=== PATIENT | female | born 1970 | race Caucasian/White ===

== ENCOUNTER 2019-07-08 20:20 | Emergency (ER) | payer MEDICAID, SELFPAY ==
--- NOTE | 2019-07-08 20:22 | W.ED.EXTPRO ---
HPI - Extremity Problem General: Chief complaint: Extremity Injury, Lower Stated complaint: ANKLE INJURY Time Seen by Provider: 07/08/19 20:22 Source: patient Mode of arrival: ambulatory Limitations: no limitations History of Present Illness: HPI Narrative: Patient was stepping off the bed after hanging some drapes in a room. And twisted her left foot and ankle. Patient has significant swelling noted to the ankle area and ecchymosis to the first meta tarsal. Patient reports previous fracture to the ankle. Patient appears well. Patient appears in no acute distress. Patient has had 50 mg of fentanyl prior to arrival. Complaint: joint paint Review of Systems General: Reports: 10 or more systems reviewed and unremarkable except in HPI and below Musc: Reports: joint pain (injury) PFS ED PFSH: Social History Smoking and tobacco status: current every day smoker Physical Exam Const: COMMON NORMALS: no apparent distress and oriented x3 GENERAL APPEARANCE: cooperative HENMT: COMMON NORMALS: normocephalic, external ears normal, EAC's normal, TM's normal bilaterally and external nose normal HEAD & SCALP: normal to inspection and normocephalic FACE & SINUS: normal facial exam NOSE: external nose normal GENERAL EAR: hearing not grossly impaired EXTERNAL EAR: Yes external ears normal EXTERNAL AUDITORY CANAL: EAC's normal TYMPANIC MEMBRANE: TM's normal bilaterally MOUTH: oral and palatal mucosa normal THROAT: posterior oropharynx normal Eye: COMMON NORMALS: PERRL and EOMs intact bilaterally PUPIL: Yes PERRL Neck/C-Spine: COMMON NORMALS: full ROM and no lymphadenopathy Lymph: LYMPHATIC: no lymphedema noted Chest: COMMONS NORMALS: inspection of chest normal and palpation of chest normal Resp: COMMON NORMALS: normal respiratory effort and clear to auscultation bilaterally AUSCULTATION: clear to auscultation bilaterally Cardio: COMMON NORMALS: regular rate and regular rhythm RATE: regular rate RHYTHM: regular rhythm GI: COMMON NORMALS: normal to inspection, nondistended, normoactive bowel sounds and non-tender : COMMON NORMALS: Yes no CVA tenderness BLADDER/KIDNEY EXAM: Yes no CVA tenderness Back/Pelvis: COMMON NORMALS: no CVA tenderness and thoracic and lumbar spine normal to inspection Extremity: COMMON NORMALS: normal to inspection GENERAL: Yes edema (left ankle) LEFT LOWER EXTREMITY: Yes ankle joint Left ankle: Yes inspection (lateral ankle swelling) and Yes palpation (lateral ankle tenderness) and Yes foot & digits Left foot and digits: Yes inspection (ecchymosis area 1st metatarsal, pulse intact) and Yes palpation (tenderness) Neuro: COMMON NORMALS: oriented x3, moves all extremities and no focal motor deficits Psych: COMMON NORMALS: mental status grossly normal and cooperative Skin: COMMON NORMALS: no rashes or lesions noted GENERAL SKIN EXAM: no rashes or lesions noted Course Vital Signs: Vital signs: Vital Signs Temperature 98.1 F 07/08/19 20:24 Pulse Rate 62 07/08/19 21:42 Respiratory Rate 18 07/08/19 21:42 Blood Pressure 95/62 07/08/19 21:42 Pulse Oximetry 98 07/08/19 21:42 MDM - Extremity (Nontraumatic) MDM Narrative: Medical decision making narrative: Patient comes in today with injury to the left ankle and foot. On exam we note some ecchymosis to the first metatarsal area of the foot, swelling to the lateral malleus. No dislocation is noted. Prompt capillary refill is noted. Pulses are intact. Differential diagnosis includes fracture, sprain, contusion. X-rays are negative for any fracture or dislocation. Reviewed exam with patient with recommendations for Markus wrap and nonweightbearing with crutches. We wrote a prescription for a orthopedic boot for further treatment and support of the ankle and foot. Recommend follow-up with primary care in 1 week. Discharge Plan Discharge Patient Disposition: Home, Self-Care Clinical Impression: Ankle sprain and strain Condition: Stable Prescriptions: New ibuprofen 800 mg tablet 800 mg PO Q8H PRN (Reason: pain) Qty: 30 RF: 0 Discharge Orders: Discharge Order (Routine); Ordered 07/08/19 Ordered By: Benjie Beard Referrals: Albertina Dick FNP [Primary Care Provider] - Discharge Diet: Usual diet Discharge Activity: Increase activity as tolerated Patient Instructions: Ankle Sprain (ED) Activity Restrictions/Additional Instructions: Home and rest Avoid weight bearing activity until you can stand on foot comfortably Use crutches until you can walk comfortably Markus wrap until swelling is resolved Use acetaminophen and ibuprofen for pain Ice and heat for further comfort Follow-up with primary care in one week for no improvement Discharge Date/Time: 07/08/19 21:45 Coding Level of Care Code ED Apparel Manager for Chg Fwd Exam Comprehensive
[2019-07-08 20:24] VITALS: BP 105/71; PULSE 76; RESP 18; TEMP 36.7; O2SAT 96; BMI 28.3
--- NOTE | 2019-07-08 20:27 | XR_ITS ---
WS: [id number] Left foot, 3 views, 07/08/2019 Clinical Data: injury Comparison: None. Findings: No fractures or dislocations are seen. No bone destruction or erosion is noted. The joint spaces and soft tissues are normal. There is a small plantar spur. XR/XR foot LT min 3V* 04600 Impression: Negative left foot.
--- NOTE | 2019-07-08 20:27 | XR_ITS ---
WS: [id number] Left leg including the tibia and fibula, 07/08/2019 Clinical Data: injury Comparison: None. Findings: No fractures or dislocations are seen. The left tibia and fibula are intact. The soft tissues are nor mal. XR/XR tibia fibula LT 2V 11421 Impression: Negative for fracture.
--- NOTE | 2019-07-08 20:28 | XR_ITS ---
WS: [id number] Left ankle, 3 views, 07/08/2019 Clinical Data: injury Comparison: None. Findings: No fractures or dislocations are seen. The ankle mortise is normal. The talus and calcaneus are unrem arkable. No soft tissue swelling over the medial malleolus is seen. There is swelling over the lateral malleolus. XR/XR ankle LT min 3V* 44190 Impression: 1. Negative for fracture. 2. Soft tissue swelling over lateral malleolus.
[2019-07-08] MEDS: ketorolac 30 mg/mL INJ IVP (21:20)
[2019-07-08 21:42] VITALS: BP 95/62; PULSE 62; RESP 18; O2SAT 98
== END 2019-07-08 21:45 | disposition home or self-care (01) ==
LOC: ER 21:30
PROVIDERS: Emergency Provider Nurse Practitioner Family; Family Provider Nurse Practitioner; PCP Nurse Practitioner
DX: S93.402A Sprain of unspecified ligament of left ankle, initial encounter (principal); S96.912A Strain of unspecified muscle and tendon at ankle and foot level, left foot, initial encounter; X50.1XXA Overexertion from prolonged static or awkward postures, initial encounter; F17.200 Nicotine dependence, unspecified, uncomplicated
CPT/HCPCS: 12345; 73590; 73610; 73630; 96374; 96375; 99281; 99283; E0114; J1885

== ENCOUNTER → 2020-03-03 08:42 | Outpatient (BNVA) | payer MEDICAID, SELFPAY | PROVIDERS: Family Provider Nurse Practitioner; PCP Nurse Practitioner; Visit Provider Family Medicine Adult Medicine | DX: R03.0 Elevated blood-pressure reading, without diagnosis of hypertension (principal); R63.5 Abnormal weight gain; R07.9 Chest pain, unspecified; Z86.39 Personal history of other endocrine, nutritional and metabolic disease; F41.9 Anxiety disorder, unspecified; F43.9 Reaction to severe stress, unspecified; F32.9 Major depressive disorder, single episode, unspecified; F51.02 Adjustment insomnia | CPT/HCPCS: 80053; 82550; 82552; 83036; 84443; 84484; 85025 ==

== ENCOUNTER → 2020-07-12 14:44 | Outpatient (BNVA) | payer MEDICAID, SELFPAY | PROVIDERS: Family Provider Nurse Practitioner; PCP Nurse Practitioner; Visit Provider Nurse Practitioner Women's Health | DX: R10.32 Left lower quadrant pain (principal) | CPT/HCPCS: 76830 ==

== ENCOUNTER → 2020-07-19 15:19 | Outpatient (BNVA) | payer MEDICAID, SELFPAY | PROVIDERS: Family Provider Nurse Practitioner; PCP Nurse Practitioner; Visit Provider Nurse Practitioner Women's Health | DX: Z01.419 Encounter for gynecological examination (general) (routine) without abnormal findings (principal); N92.4 Excessive bleeding in the premenopausal period; R10.32 Left lower quadrant pain | CPT/HCPCS: 88175; 88305 ==

== ENCOUNTER → 2020-08-25 11:52 | Outpatient (BNVA) | payer MEDICAID, SELFPAY | PROVIDERS: PCP Nurse Practitioner; Visit Provider Obstetrics & Gynecology | DX: N91.2 Amenorrhea, unspecified (principal); R10.2 Pelvic and perineal pain; Z20.822 Contact with and (suspected) exposure to COVID-19 | CPT/HCPCS: 87635 ==

== ENCOUNTER 2020-08-30 14:45 | Inpatient (IN) | payer MEDICAID, SELFPAY ==
[2020-08-25 11:19] VITALS: BMI 28.3
[2020-08-25 11:50] LABS: Basophils % 0.7 %; Eosinophils # 0.1 10^3/uL (0.0-0.8); Eosinophils % 1.2 %; Hematocrit 40.7 % (37.0-47.0); Hemoglobin 13.1 g/dL (11.5-15.3); Lymphocytes # 1.4 10^3/uL (0.8-4.8); Lymphocytes % 24.8 %; Mean Corpuscular HGB Conc 32.2 g/dL (30.0-36.0); Mean Corpuscular Hemoglobin 28.7 pg (28.0-34.0); Mean Corpuscular Volume 89.1 fL (81-99); Mean Platelet Volume 12.6 fL (7.4-10.4); Monocytes # 0.4 10^3/uL (0.2-0.9); Monocytes % 7.1 %; Neutrophils # 3.83 10^3/uL (1.8-7.7); Neutrophils % 65.9 %; Nucleated Red Blood Cells % 0 %; Platelet Count 191 10^3/cmm (130-400); Red Blood Count 4.57 10^6/uL (4.1-5.3); Red Cell Distribution Width 13.2 % (12.1-15.1); White Blood Count 5.8 10^3/uL (4.0-10.0)
[2020-08-25 12:11] LABS: Alanine Aminotransferase 8 U/L (0-33); Alkaline Phosphatase 63 IU/L (35-105); Anion Gap 12.1 (5-19); Aspartate Amino Transferase 12 U/L (0-32); Blood Urea Nitrogen 11 mg/dL (6-20); Calcium 8.9 mg/dL (8.5-10.5); Carbon Dioxide 24 mmol/L (22-29); Chloride 103 mmol/L (98-107); Creatinine Clr Calc Pharmacy 97.3733; Globulin 2.8 g/dL (1.3-4.6); Glomerular Filtration Rate 89.3 mL/min (90-130); Glucose 107 mg/dL (65-115); Osmolality Calculated 280 mOsm/kg (285-295); Potassium 4.1 mmol/L (3.5-5.1); Sodium 135 mmol/L (136-145); Total Bilirubin 0.3 mg/dL (0.15-1.2); Total Protein 6.8 g/dL (6.6-8.7)
[2020-08-30] VITALS (19 sets, daily range): BP systolic 122–170; BP diastolic 58–104; PULSE 57–76; RESP 16–20; TEMP 36.1–36.9; O2SAT 94–100
[2020-08-30] MEDS: gabapentin 300 mg Capsule PO (08:11)
[2020-08-30] MEDS: CELEcoxib 200 mg Capsule 400 MG PO (08:11)
[2020-08-30] MEDS: sodium chloride 0.9% 1,000 ML 30 ML IV (08:13)
[2020-08-30] MEDS: ketorolac 30 mg/mL INJ IVP ×2 (08:20→15:48)
[2020-08-30] MEDS: acetaminophen 1,000 MG/100 ML PIGGYBACK 400 MG IV (08:20)
--- NOTE | 2020-08-30 08:20 | ANES.PREANE2 ---
Pre-Anesthetic Assessment Pre-Anesthetic Assessment: Height/Weight: Height 1.63 m Weight 74.843 kg Temp Pulse Resp BP Pulse Ox 97.6 F 61 18 122/67 94 08/30/20 08:05 08/30/20 08:05 08/30/20 08:05 08/30/20 08:05 08/30/20 08:05 Preop Diagnosis: menorrhagia, uterine leiomyoma Proposed Procedure: Operation Date: 08/30/20 09:20 Proposed Procedures p Total Abdominal Hysterectomy 17629 n92.0 r10.2(Not Applicable) - Dorothy Martinez MD s Salpingo Oophorectomy (Open)(Not Applicable) - Dorothy Martinez MD Was Beta Cedrick taken within 24 hours: N/A Was Clonidine taken within 24 hours: N/A Last intake: Intake Last Liquid Date 08/29/20 Last Liquid Time 22:00 Last Solid Date 08/29/20 Last Solid Time 22:00 Social: Social History: Tobacco and No alcohol Exam: Pre-Anes Outpt Exam: alert, oriented x 3, clear to auscultation bilaterally and regular rate & rhythm Airway: Submandibular: WNL Cervical ROM: WNL MP: 2 Pulmonary: Pulmonary: None reported CV/HEM: CV/HEM: None reported : : None reported Hepatic: Hepatic: None reported GI: GI: None reported Metabolic: Metabolic: None reported Musc/skel: Musc/skel: None reported Neuropsych: Neuropsych: Depression Anesthetic Plan: ASA status: 2 Anesthesia: General PFSH Anesthesia PFSH: Medical History Adjustment insomnia Anxiety and depression Chest pain due to psychological stress No pertinent past medical history neghx: htn,dm,thyroid,dvt/pe PCP: Dr. Sinha Surgical History History of tonsillectomy and adenoidectomy at age 11 History of tubal ligation Hx of section 1995 2003 2005 Family History Father Diabetes Mother Hypertension Grandmother Stroke Maternal Thyroid disease Maternal Denies family history of Colon cancer Ovarian cancer Heart disease Hypercholesteremia Breast cancer Uterine cancer Social History Marital status: Legally Female Reproductive History: Date of last menstrual period: 07/28/20 Data Anesthesia CBC & Chem 7: 08/25/20 11:30 08/25/20 11:30 Cardiac Studies: No Data to Display
[2020-08-30 08:30] LABS: OR HCG Qualitative Urine Negative (Negative)
--- NOTE | 2020-08-30 09:20 | W.PM.OPSUD ---
Surgery/Procedure H&P Update DATE OF PROCEDURE: August 30, 2020 DATE H&P PERFORMED: 08/24/20 H&P UPDATE INFORMATION: I have reviewed H&P completed within last 30 days, I have examined patient prior to procedure and No changes to prior documentation PREOP DIAGNOSIS: menorrhagia, uterine leiomyoma PLANNED PROCEDURE: Operation Date: 08/30/20 09:20 Proposed Procedures p Total Abdominal Hysterectomy 73958 n92.0 r10.2(Not Applicable) - Dorothy Martinez MD s Salpingo Oophorectomy (Open)(Not Applicable) - Dorothy Martinez MD
--- NOTE | 2020-08-30 14:16 | P.OP_ITS ---
Operative Report Date of procedure: August 30, 2020 Pre-op Diagnosis: menorrhagia, uterine leiomyoma Post-op diagnosis: same Post-op Findings: enlarged uterus with bilateral tubal ligation and normal appearing ovaries. Moderate pelvic adhesions. Procedure Done: total abdominal hysterectomy with bilateral salpingoophorectomy Specimens removed/disposition: uterus, bilateral fallopian tubes and ovaries. Surgeon: Dorothy Martinez Anesthesia: General Estimated blood loss (mL): 150 IV fluids (mL): 1,000 Urine output (mL): 400 Complications: none Condition: stable Disposition: PACU Brief History: 49 year old with several year history of menorrhagia and pelvic pain Procedure: The patient was taken to the operating room where general anesthesia was administered and found to be adequate. She was prepped and draped in the normal sterile fashion in the dorsal supine position. A Pfannenstiel skin incision was made and carried down to the underlying layer of fascia. The fascia was nicked in the midline and extended laterally with the Vidal scissors. The fascia was then tented up and the rectus muscles dissected off sharply. The rectus muscles were in the midline and the abdomen entered bluntly with the digit. This peritoneal incision was extended superiorly and inferiorly with good visualization of the bladder. The O'Marques-O'Alberto retractor was placed and the bowel packed away. There was adhesions of the omentum to the right pelvic sidewall as well as several adhesion of the bowel and small bowel to the left adnexa. The round ligament was suture-ligated and opened. This was performed bilaterally. A window was made medial to the infundibulopelvic ligament and inferior to the fallopian tube and ovary. The infundibulopelvic ligament was clamped cut and suture-ligated bilaterally. The uterine arteries and cardinal ligaments were then clamped cut and suture-ligated down to the angle of the vagina. The vaginal cuff was clamped and cut and the specimen was removed. The vaginal cuff was closed with 0 Vicryl incorporating the uterosacral ligaments into the lateral aspects of the vaginal cuff. There was excellent hemostasis. The pelvis was irrigated. The O'Marques-O'Alberto retractor as well as the packing was removed. The peritoneum was closed with 2- 0 Monocryl in a running fashion. The fascia was closed with 0 Vicryl in a running fashion with 2 separate sutures overlapping in the midline. The skin was closed with absorbable sammie. The patient tolerated the procedure well. Sponge lap and needle counts were correct x2. She was taken to the recovery room in stable condition.
--- NOTE | 2020-08-30 14:46 | SUR.PHASEI ---
1445- ORAL AIRWAY OUT, SIMPLE MASK AT 6LPM SAT 98%
[2020-08-30] MEDS: fentaNYL 50 mcg/mL INJ 2mL IVP (14:50)
--- NOTE | 2020-08-30 14:53 | ANE.PACU2 ---
Inpatient post-anesthesia follow up: Airway intact: Yes Vital signs: Temperature 97.2 F Pulse Rate 70 Respiratory Rate 18 Blood Pressure 132/58 Pulse Oximetry 100 Oxygen Delivery Me thod Simple Mask Oxygen Flow Rate 6 Fraction of Inspir ed Oxygen Hydration adequate: Yes Nausea and vomiting: No Pain level: 5 Mental status: Baseline
[2020-08-30] MEDS: oxyCODONE-APAP 5-325 mg Tablet PO ×2 (15:48→21:33)
[2020-08-30] MEDS: HYDROmorphone 1 mg/mL INJ 1 mL 1.5 MG IVP ×2 (16:35→19:37)
[2020-08-30] MEDS: simethicone 80 mg Chew PO (19:38)
[2020-08-30] MEDS: nicotine 14 mg Patch 1 PATCH TRANSDERMA (19:38)
[2020-08-30] MEDS: temazepam 15 mg Capsule PO (23:06)
[2020-08-30] MEDS: dextrose 5%-lactated ringers 1,000 ML 125 ML IV (23:06)
[2020-08-31] VITALS (7 sets, daily range): BP systolic 115–149; BP diastolic 59–73; PULSE 63–71; RESP 16–20; TEMP 36.9–37; O2SAT 98–99
[2020-08-31] MEDS: simethicone 80 mg Chew PO (01:15)
[2020-08-31] MEDS: HYDROmorphone 1 mg/mL INJ 1 mL 1.5 MG IVP (01:16)
[2020-08-31 04:25] LABS: Hematocrit 31.8 % (37.0-47.0); Mean Corpuscular HGB Conc 31.4 g/dL (30.0-36.0); Mean Corpuscular Hemoglobin 28.4 pg (28.0-34.0); Mean Corpuscular Volume 90.3 fL (81-99); Mean Platelet Volume 12.1 fL (7.4-10.4); Platelet Count 178 10^3/cmm (130-400); Red Blood Count 3.52 10^6/uL (4.1-5.3); Red Cell Distribution Width 13.4 % (12.1-15.1); White Blood Count 10.1 10^3/uL (4.0-10.0)
[2020-08-31 04:42] LABS: Anion Gap 9.2 (5-19); Blood Urea Nitrogen 6 mg/dL (6-20); Calcium 7.6 mg/dL (8.5-10.5); Carbon Dioxide 26 mmol/L (22-29); Chloride 110 mmol/L (98-107); Glomerular Filtration Rate 106.7 mL/min (90-130); Glucose 145 mg/dL (65-115); Osmolality Calculated 292 mOsm/kg (285-295); Potassium 4.2 mmol/L (3.5-5.1); Sodium 141 mmol/L (136-145)
[2020-08-31] MEDS: oxyCODONE-APAP 5-325 mg Tablet PO ×3 (06:58→19:35)
[2020-08-31] MEDS: dextrose 5%-lactated ringers 1,000 ML 125 ML IV (07:24)
--- NOTE | 2020-08-31 07:28 | PM.PN ---
Subjective Subjective: Interval history: The patient has had some pain control issues overnight. She is ambulating and tolerating a regular diet. Medications: Reviewed: Yes Medication Review Details: stop dilaudid today and only oral pain medication Vitals/I&O/Wt Last Vital Signs Temp 97.8 F 08/30/20 18:25 Pulse 71 08/31/20 05:53 Resp 16 08/31/20 06:58 BP 115/59 08/31/20 05:53 Pulse Ox 98 08/31/20 05:53 08/30/20 08/31/20 08/31/20 22:59 06:59 14:59 Intake Total 50 / 1100 1000 / 1000 Output Total 600 / 1150 1300 / 2450 Balance -550 / -50 -1300 / -1350 1000 / 1000 Physical Exam Const: COMMON NORMALS: average body habitus, patient oriented x3, no limitations, healthy appearing, alert and well nourished GENERAL APPEARANCE: cooperative, well kempt, well developed and anxious ORIENTATION/CONSCIOUSNESS: Yes awake, Yes oriented to person, Yes oriented to place and Yes oriented to time GI: COMMON NORMALS: Soft to palpation and non-tender PALPATION: Yes Soft to palpation Extremity: COMMON NORMALS: no clubbing, cyanosis or edema Neuro: COMMON NORMALS: patient oriented x3 SENSORIUM/ORIENTATION: Yes alert, Yes oriented to person, Yes oriented to place and Yes oriented to time Psych: APPEARANCE: Yes well kempt Skin: WOUNDS: Yes surgical site (clean/dry and covered.) Urinary Catheter Management^: Guthrie: Cath Placed During This Visit: yes, but has since been removed by the nurse Reason for Continuing Indwelling Catheter: Decision to DC Catheter Urinary Catheter Date of Insertion: 08/30/20 Urinary Catheter Time of Insertion: 12:15 Date Urinary Catheter Removed: 08/31/20 Time Urinary Catheter Discontinued: 06:35 Data : 08/31/20 04:15 08/31/20 04:15 A&P Assessment and plan (1) Postoperative state: doing well postoperatively pain seems to be an issue. encouraged ambulation today and miralax to help with bowel movements. continue stool softeners as well change from combination po/iv pain medication to only PO anticipated discharge tomorrow Status: Acute Attestations Medical Necessity Statement*: post surgery inpatient admit Coding Level of Care Code Acute Citrus Fruit Colorer for Ana Jhaveri Diagnoses Postoperative state Z98.890
[2020-08-31] MEDS: sertraline 100 mg Tablet PO (08:35)
[2020-08-31] MEDS: docusate sodium 100 mg Capsule PO ×2 (08:35→19:04)
--- NOTE | 2020-08-31 10:09 | PC.NURSE ---
Patient reports feeling like she has to pee, but being unable to do so. Patient voided 100 ml of pale yellow urine. Bladder scan performed after this, and there was less than 30 ml in the bladder.
--- NOTE | 2020-08-31 12:00 | PC.NURSE ---
Patient reports still feeling like she needs to pee and being unable to do so. Obtaining bladder scanner from [employer] so patient's bladder can be scanned again.
--- NOTE | 2020-08-31 12:11 | PC.NURSE ---
Performed bladder scan on patient. Several results were 0 ml, and the max result gotten was 27.
[2020-08-31] MEDS: phenazopyridine 100 mg Tablet 200 MG PO (13:55)
[2020-08-31] MEDS: ibuprofen 800 mg tablet PO ×2 (13:55→22:55)
[2020-08-31] MEDS: alum-mag-hydroxide-sime 30 mL UDC PO (13:59)
--- NOTE | 2020-08-31 16:17 | PC.NURSE ---
Patient informed of Dr. Kelly's request that she ambulates more in the hallway for pain relief. Patient states I'm not going to walk in the hallway if she won't give me anything else for pain Patient then screams profanities and gets out of bed and walks to bathroom. Will continue to monitor and follow up as needed.
--- NOTE | 2020-08-31 16:46 | PC.NURSE ---
Patient observed walking in from outside. Patient states she had gone outside and smoked a cigarette. Patient reports her pain is still 10/10 and walking in the hallway did not help at all. Patient very upset and crying. Patient asked if I could get her anything and patient refused. IV removed at this time r/t patient leaving floor.
[2020-08-31] MEDS: temazepam 15 mg Capsule PO (21:23)
[2020-09-01 01:30] VITALS: BP 117/64; PULSE 64; RESP 18; TEMP 36.6; O2SAT 98
[2020-09-01 01:35] VITALS: RESP 16
[2020-09-01] MEDS: oxyCODONE-APAP 5-325 mg Tablet PO ×2 (01:35→08:21)
--- NOTE | 2020-09-01 04:15 | PC.NURSE ---
pt resting in bed comfortably with eyes closed at this time. Will continue to monitor
[2020-09-01 04:17] VITALS: BP 109/62; PULSE 58; RESP 16; TEMP 36.8; O2SAT 98
[2020-09-01] MEDS: ibuprofen 800 mg tablet PO (07:23)
--- NOTE | 2020-09-01 07:45 | PM.DCS ---
Discharge Providers Date of Admission: 08/30/20 12:37 Date of Discharge: September 01, 2020 Attending Provider at Admission: Dorothy Martinez MD Attending Provider at Discharge: Dorothy Martinez MD Primary Care Provider: JONAH Kuhn Diagnoses at Discharge Discharge Diagnosis (1) Postoperative state: Status: Acute Reason for Visit Reason for Visit: Total abdominal hysterectomy, bilateral salpingo-o Hospital Course Hospital Course The patient was admitted for surgery. On POD#1, she was having some pain issues. This was finally controlled and on POD#2, the patient was doing well and ready for discharge. Physical Exam Urinary Catheter Management^: Guthrie: Cath Placed During This Visit: yes, but has since been removed by the nurse Reason for Continuing Indwelling Catheter: Decision to DC Catheter Urinary Catheter Date of Insertion: 08/30/20 Urinary Catheter Time of Insertion: 12:15 Date Urinary Catheter Removed: 08/31/20 Time Urinary Catheter Discontinued: 06:35 Discharge Data Data Completed and Pending: Pending at discharge Category Date Time Status Pathology: Surgic al [PTH] Routine Pth 08/30/20 14:34 Received Vitals: Last Vital Signs Temp 98.3 F 09/01/20 04:17 Pulse 58 L 09/01/20 04:17 Resp 16 09/01/20 04:17 BP 109/62 09/01/20 04:17 Pulse Ox 98 09/01/20 04:17 Discharge Plan Discharge Patient Disposition: Home Condition: Stable Prescriptions: New oxycodone-acetaminophen 5-325 mg Tablet 2 tab PO Q6H PRN (Reason: Moderate To Severe Pain) Qty: 30 RF: 0 Continued multivitamin Tablet 1 tab PO DAILY RF: 0 sertraline 100 mg tablet 100 mg PO DAILY Qty: 30 RF: 5 ibuprofen 800 mg tablet 800 mg PO Q8H PRN (Reason: pain) Qty: 30 RF: 0 Discharge Orders: Discharge Order (Routine); Ordered 09/01/20 Ordered By: Dorothy Martinez Patient Instructions: Opioid Safety Discharge Attestations Time Spent in Discharge Care*: less than 30 min Quality Metrics Clinical Quality Measures During this hospital stay, did patient experience: None Coding Level of Care Code Acute Chg FW DC note Diagnoses Postoperative state Z98.890
[2020-09-01 08:21] VITALS: RESP 18
[2020-09-01] MEDS: docusate sodium 100 mg Capsule PO (08:21)
[2020-09-01] MEDS: sertraline 100 mg Tablet PO (08:21)
[2020-09-01 10:00] VITALS: BP 148/68; PULSE 68; RESP 18; TEMP 36.4; O2SAT 100
--- NOTE | 2020-09-01 16:26 | PC.RESP ---
SMOKING CESSATION INFORMATION SENT TO PATIENT.
== END 2020-09-01 08:50 | disposition home or self-care (01) | DRG 743 ==
LOC: OBGYN 08-31 13:12
PROVIDERS: Admitting Provider Obstetrics & Gynecology; PCP Nurse Practitioner; Visit Provider Obstetrics & Gynecology
PROC: 0UT90ZZ Resection of Uterus, Open Approach (ICD-10-PCS; CPT 58150; principal; 2020-08-30 09:20)
PROC: 0UT90ZZ Resection of Uterus, Open Approach (ICD-10-PCS; CPT 58720; 2020-08-30 09:20)
DX: D25.9 Leiomyoma of uterus, unspecified (principal); F51.02 Adjustment insomnia; F41.8 Other specified anxiety disorders; F17.210 Nicotine dependence, cigarettes, uncomplicated; N92.4 Excessive bleeding in the premenopausal period; Z88.5 Allergy status to narcotic agent
CPT/HCPCS: 36415; 80048; 80053; 81025; 84703; 85025; 85027; 88307; 96365; 96374; G0378; J0690; J1100; J1170; J1885; J2405; J2704; J2710; J3010; J3490; J7030

== ENCOUNTER → 2021-01-03 12:16 | Outpatient (BNVA) | payer MEDICAID, SELFPAY | PROVIDERS: PCP Nurse Practitioner; Visit Provider Nurse Practitioner Family | DX: Z20.822 Contact with and (suspected) exposure to COVID-19 (principal) | CPT/HCPCS: 87426 ==